=== PATIENT | male | born 1995 | race African-American/Black ===

== ENCOUNTER 2022-01-06 01:04 | Emergency (ER) | payer OTHER ==
[2022-01-06] MEDS ORDERED: Ketorolac Tromethamine 30 MG/ML VIAL ONE (01:28)
== END 2022-01-06 01:40 | disposition home or self-care (01) ==
LOC: CSHERS 01:04
DX: K02.9 Dental caries, unspecified (principal); F17.200 Nicotine dependence, unspecified, uncomplicated
CPT/HCPCS: 96372; 99282; J1885

== ENCOUNTER 2022-01-09 14:44 | Emergency (ER) | payer OTHER ==
[2022-01-09] MEDS ORDERED: Lidocaine 1% (PF) 30 ML VIAL ONE (15:33)
[2022-01-09] MEDS ORDERED: Bacitracin 1 PK ONE (16:25)
== END 2022-01-09 16:32 | disposition home or self-care (01) ==
LOC: CSHERS 14:44
DX: S41.152A Open bite of left upper arm, initial encounter (principal); S51.812A Laceration without foreign body of left forearm, initial encounter; F17.200 Nicotine dependence, unspecified, uncomplicated; W54.0XXA Bitten by dog, initial encounter
CPT/HCPCS: 12002; J2001